=== PATIENT | male | born 2005 | race Caucasian/White ===

== ENCOUNTER → 2024-05-08 | Outpatient (CLI) | payer MEDICAID ==
[~2024-05-08] MED LIST: BACLOFEN20 MG PO; GABAPENTIN TAB600 MG PO; MIDODRINE HCL2.5 MG PO; REMERON15 MG PO; SERTRALINE50 MG PO; TIZANIDINE2 MG PO; VITAMIN D350 MCG PO
== END ==
LOC: LAB 12:51
DX: L89.153 Pressure ulcer of sacral region, stage 3 (principal)